=== PATIENT | female | born 1990 | race Caucasian/White ===

== ENCOUNTER 2016-06-08 14:05 | Emergency (ER) | payer BC ==
[~2016-06-08] VITALS: Ht 157.5 cm; Wt 45.0 kg
[2016-06-08 14:06] VITALS: BP 145/82; PULSE 106; RESP 14; TEMP 98.5; O2SAT 98
[2016-06-08 15:15] LABS: BACTERIA, URINE RARE /hpf; BLOOD, URINE NEG (NEG); COMMENT (UR) CULT NOT INDICATED; CULTURE IF INDICATED CULT NOT INDICATED; GLUCOSE,URINE NEG (NEG); KETONE, URINE NEG (NEG); MUCUS URINE FEW /lpf (OCC); NITRITE,URINE NEG (NEG); PH, URINE 7.5 (5.0-8.5); SQUAMOUS EPITHELIAL CELL URINE 1 /hpf (0-5); URINE COLOR COLORLESS (YELLW/STRAW)
[2016-06-08] MEDS ORDERED: NORE1TAB PO (17:10)
[2016-06-08] MEDS ORDERED: IBUP800T23 PO (17:14)
[2016-06-08] MEDS ORDERED: CEPH-460 PO (17:14)
[2016-06-08] MEDS ORDERED: PHEN0.4T PO (17:14)
--- NOTE | 2016-06-08 17:14 | PD ---
HPI Chief Complaint: Complaint Time Seen by Provider: 17:08 Travel History International Travel<30 days: No Contact w/Intl Traveler<30days: No Traveled to known affect area: No History of Present Illness HPI 26-year-old female presents to the emergency Department with complaint of painful urination since November. Reports painful urination has been present much constant since. She has been tested for urinary tract infections many times and told she didn't have one. She is been tested for STDs multiple times and recently was tested again. She has followed up with her primary care and gynecology. She has taken antibiotics in the past with some resolution of the pain during the antibiotics but then recurrence immediately. She has tried cranberry pills with no relief of symptoms. Reports urinary frequency and urgency. Denies hematuria. Reports bladder spasms. Denies abdominal pain, nausea, vomiting. Denies fever, chills. Denies vaginal discharge, odor, itch, lesions. Denies risk of . No known relieving factors. Allergies to sulfa. Denies significant past medical history. Has an appointment on with her primary care provider, Dr. Pastor. No other modifying factors or associated signs and symptoms. PFSH Past Medical History ?: Not LMP: 05/18/16 Social History Tobacco Use: No Allergies-Medications (Allergen,Severity, Reaction): Coded Allergies: Sulfa (Verified Allergy, Unknown, RASH, 06/08/16) Reported Meds & Prescriptions Reported Meds & Active Scripts Active Ibuprofen 800 Mg Tab 800 Mg PO Q6HR PRN Pyridium (Phenazopyridine HCl) 100 Mg Tab 100 Mg PO Q8H PRN Keflex (Cephalexin) 500 Mg Cap 500 Mg PO Q12H 7 Days Reported Microgestin 24 Fe 05/13 (Norethindrone-Ethinyl Estradiol-Fe) 1-20 Mg-Mcg Tab 1 Tab PO DAILY Review of Systems Except as stated in HPI: all other systems reviewed are Neg Physical Exam Narrative GENERAL: Well-nourished, well-developed female patient, in no acute distress SKIN: Warm and dry. No rash. HEAD: Atraumatic. Normocephalic. EYES: Pupils equal and round. No scleral icterus. No injection or drainage. ENT: Mucosa pink and moist. NECK: Trachea midline. CARDIOVASCULAR: Regular rate and rhythm. No murmur appreciated. RESPIRATORY: No accessory muscle use. Clear to auscultation. Breath sounds equal bilaterally. GASTROINTESTINAL: Abdomen soft, non-tender, nondistended. Hepatic and splenic margins not palpable. Bowel sounds are active 4 quadrants. Bladder nontender and nondistended. MUSCULOSKELETAL: No obvious deformities. No clubbing. No cyanosis. No edema. BACK: No CVA tenderness NEUROLOGICAL: Awake and alert. Oriented 3. No obvious cranial nerve deficits. Motor grossly within normal limits. Normal speech. Moves all extremities. 5/5 strength to all extremities. PSYCHIATRIC: Appropriate mood and affect; insight and judgment normal. Data Data Last Documented VS Vital Signs Date Time Temp Pulse Resp B/P Pulse Ox O2 Delivery O2 Flow Rate FiO2 06/08/16 14:06 98.5 106 14 145/82 98 Room Air Orders Urinalysis - C+S If Indicated (06/08/16 14:21) Ed Urine Pregnancytest Poc (06/08/16 14:21) Labs Laboratory Tests Test 06/08/16 14:30 Urine Color COLORLESS Urine Turbidity CLEAR Urine pH 7.5 Urine Specific [place] 1.003 Urine Protein NEG mg/dL Urine Glucose (UA) NEG mg/dL Urine Ketones NEG mg/dL Urine Occult Blood NEG Urine Nitrite NEG Urine Bilirubin NEG Urine Urobilinogen LESS THAN 2.0 MG/DL Urine Leukocyte Esterase SMALL Urine RBC LESS THAN 1 /hpf Urine WBC 5 /hpf Urine Squamous Epithelial 1 /hpf Cells Urine Bacteria RARE /hpf Urine Mucus FEW /lpf Microscopic Urinalysis Comment CULT NOT INDICATED MDM Medical Decision Making Medical Screen Exam Complete: Yes Emergency Medical Condition: Yes Medical Record Reviewed: Yes Differential Diagnosis Interstitial cystitis, urinary tract infection, pyelonephritis Narrative Course 26-year-old female with dysuria since November. She has had multiple follow-ups with her [facility] and gynecology. She has been tested for STDs and UTIs with no resolution of symptoms. She's been treated with antibiotics with minimal resolution of symptoms. Patient denies vaginal symptoms. She has a follow-up appointment with her primary care provider on . Urinalysis in the ER is with no signs of infections. Suspecting interstitial cystitis. I will provide the patient with a prescription for Keflex and Pyridium for home. Instructed patient to follow up with urology. Patient verbalizes understanding and agreement with treatment plan. Keflex, Pyridium, ibuprofen prescribed for home. Patient is medically cleared and stable for discharge. Discussed reasons to return to the emergency department. Instructed patient to follow up with primary care provider. Patient agrees with treatment plan. The patients vital signs are stable and the patient is stable for outpatient follow-up and treatment. Patient discharged home, stable and in no acute distress. Diagnosis Primary Impression: Cystitis Referrals: Primary Care Physician Urologist Patient Instructions: General Instructions, Interstitial Cystitis (ED), Urinary Tract Infection in Women (ED) Departure Forms: Tests/Procedures, Work Release Enter return to work date: Jun 09, 2016 Additional Instructions: Take antibiotics as prescribed and complete full course Take Pyridium for bladder spasms: Pyridium will turn your urine bright orange Drink plenty of fluids Maintain good personal hygiene Follow-up with primary care provider Follow-up with urology Return to the emergency department immediately with worsening of symptoms Med/Other Pt SpecificInfo: Prescription(s) given Scripts Ibuprofen 800 Mg [id number] Mg PO Q6HR PRN (PAIN) #30 TAB Ref 0 Prov:Maki Zapien 06/08/16 Phenazopyridine (Pyridium)100 Mg [id number] Mg PO Q8H PRN (DYSURIA) #20 TAB Ref 0 Prov:Maki Zapien 06/08/16 Cephalexin (Keflex)500 Mg [id number] Mg PO Q12H 7 Days Ref 0 Prov:Maki Zapien 06/08/16 Disposition: 01 DISCHARGE HOME Condition: Stable Maki Zapien Jun 08, 2016 17:14
== END 2016-06-08 18:03 | disposition home or self-care (01) ==
LOC: NEPB 14:05
DX: N30.90 Cystitis, unspecified without hematuria (principal); N32.89 Other specified disorders of bladder
CPT/HCPCS: 81001; 84703; 99283

== ENCOUNTER 2016-11-29 21:51 | Emergency (ER) | payer BC ==
[~2016-11-29] VITALS: Ht 165.1 cm; Wt 45.0 kg
[~2016-11-29 21:51] MED LIST: CEPH-460 PO; IBUP800T23 PO; NORE1TAB PO; PHEN0.4T PO
[2016-11-29 21:54] VITALS: BP 154/86; PULSE 88; RESP 18; TEMP 97.5; O2SAT 96
[2016-11-29] MEDS ORDERED: CIPR-9 PO (22:34)
--- NOTE | 2016-11-29 22:53 | PD ---
HPI Chief Complaint: Psychiatric Symptoms Time Seen by Provider: 22:39 Travel History International Travel<30 days: No Contact w/Intl Traveler<30days: No Traveled to known affect area: No History of Present Illness HPI The patient is a 26 year old female who presents to the [facility] emergency department with a history of right lower quadrant abdominal pain that she reports began 1 hour prior to arrival. The patient reports that it is sharp in character. She reports that it was initially constant, however now it seems to be coming and going. She denies having any associated nausea, vomiting , or diarrhea. She reports that she does intermittently feel lightheaded with it. She denies having any problems with constipation. She last moved her bowels earlier today. She denies having any blood in her stool. She does recently report having some dysuria with urinary urgency that began yesterday. She did see her primary care physician regarding this and had a urinalysis done that revealed a urinary tract infection. She reports that she was given a prescription for ciprofloxacin which she has started. She has taken this medication in the past without difficulty. On review of systems, the patient denies any recent fevers, cough, congestion, neck pain, chest pain, shortness of breath, vaginal discharge or unusual vaginal bleeding or neurologic symptoms. She reports that her last menstrual cycle was normal for her. She denies any concerns about sexually transmitted infections. LMP: Last Monday PFSH Past Medical History Narrative Medical The patient's past medical history is reportedly significant for recurrent urinary tract infections. Diminished Hearing: No Genitourinary: Yes (chronic bladder infection) ?: Unknown : 0 Para: 0 Past Surgical History Narrative Surgical The patient's past surgical history is reportedly none. Surgical History: No Previous Surgery Social History Alcohol Use: Yes (RARELY) Tobacco Use: No Substance Use: No Allergies-Medications (Allergen,Severity, Reaction): Coded Allergies: Sulfa (Verified Allergy, Unknown, RASH, 11/29/16) Reported Meds & Prescriptions Reported Meds & Active Scripts Active Pyridium (Phenazopyridine HCl) 100 Mg Tab 100 Mg PO Q8H PRN Reported Cipro (Ciprofloxacin HCl) 500 Mg Tab 500 Mg PO BID Review of Systems Except as stated in HPI: all other systems reviewed are Neg General / Constitutional: No: Fever Eyes: No: Visual changes HENT: No: Headaches Cardiovascular: No: Chest Pain or Discomfort Respiratory: No: Shortness of Breath Gastrointestinal: Positive: Abdominal Pain, No: Nausea, Vomiting, Diarrhea, Hematemesis, Hematochezia, Changes in Bowel Habits, Indigestion Genitourinary: Positive: Urgency, Dysuria Musculoskeletal: No: Pain Skin: No Rash Neurologic: No: Weakness Psychiatric: No: Depression Endocrine: No: Polydipsia Hematologic/Lymphatic: No: Easy Bruising Physical Exam Narrative General: The patient is well-developed well-nourished female in no acute distress. Head and Neck exam: Head is normocephalic atraumatic. Eyes: EOMI, pupils are equal round and reactive to light. Nose: Midline septum with pink mucous membranes Mouth: Dentition unremarkable. Moist mucus membranes. Posterior oropharynx is not erythematous. No tonsillar hypertrophy. Uvula midline. Airway patent. Neck: No palpable lymphadenopathy. No nuchal rigidity. No thyromegaly. Cardiovascular: Regular rate and rhythm without murmurs, gallops, or rubs. Lungs: Clear to auscultation bilaterally. No wheezes, rhonchi, or rales. Abdomen: Soft, with tenderness on palpation of the right lower quadrant of the abdomen. The patient has tenderness on palpation over McBurney's point. No other tenderness on palpation of the other quadrants of the abdomen. Negative psoas sign. Negative Rovsing sign. Normal bowel sounds are audible. No guarding, rebound, or rigidity. Negative [place] sign. Extremities: No clubbing, cyanosis, or edema. 2+ pulses in all 4 extremities. No calf tenderness on palpation. Back: No costovertebral angle tenderness to palpation. Neurologic Exam: Grossly nonfocal. Skin Exam: No rash noted. Intact skin that is warm and dry. Gynecologic exam: The patient was placed in the dorsal lithotomy position. Her external genitalia were examined. She had no evidence of rash or lesions. The speculum was placed into her vagina and the cervix was identified. She had a physiologic appearing white discharge. No cervical friability. On Bimanual exam: she has no cervical motion tenderness. No adnexal tenderness or prominence noted on palpation. No uterine tenderness or enlargement noted on palpation. Data Data Last Documented VS Vital Signs Date Time Temp Pulse Resp B/P Pulse Ox O2 Delivery O2 Flow Rate FiO2 11/29/16 21:54 97.5 88 18 154/86 96 Orders Complete Blood Count With Diff (11/29/16 22:40) Comprehensive Metabolic Panel (11/29/16 22:40) Thyroid Stimulating Hormone (11/29/16 22:40) Urinalysis - C+S If Indicated (11/29/16 22:40) Ed Urine Pregnancytest Poc (11/29/16 22:40) Alcohol (Ethanol) (11/29/16 22:40) C-Reactive Protein (Crp) (11/29/16 23:02) Lipase (11/29/16 23:02) Iv Access Insert/Monitor (11/29/16 23:02) Ecg Monitoring (11/29/16 23:02) Oximetry (11/29/16 23:02) Gc And Chlamydia Pcr (11/29/16 23:05) Wet Prep Profile (11/29/16 23:05) Urine Culture (11/29/16 22:45) Ketorolac Inj (Toradol Inj) (11/29/16 23:45) Sodium Chlor 0.9% 1000 Ml Inj (Ns 1000 M (11/29/16 23:45) Ct Abd/Pel W Iv Contrast(Rout) (11/30/16 23:02) Iohexol 350 Inj (Omnipaque 350 Inj) (11/30/16 00:41) Labs Laboratory Tests Test 11/29/16 11/29/16 11/29/16 22:45 22:55 23:50 Urine Color DARK-BROWN Urine Turbidity CLEAR Urine pH 6.5 Urine Specific [place] 1.015 Urine Protein NEG mg/dL Urine Glucose (UA) NEG mg/dL Urine Ketones NEG mg/dL Urine Occult Blood NEG Urine Nitrite POS Urine Bilirubin NEG Urine Urobilinogen 2.0 MG/DL Urine Leukocyte Esterase NEG Urine RBC 1 /hpf Urine WBC LESS THAN 1 /hpf Urine Squamous Epithelial <1 /hpf Cells Microscopic Urinalysis Comment CULTURE INDICATED White Blood Count 8.6 TH/MM3 Red Blood Count 4.64 MIL/MM3 Hemoglobin 15.1 GM/DL Hematocrit 42.8 % Mean Corpuscular Volume 92.2 FL Mean Corpuscular Hemoglobin 32.5 PG Mean Corpuscular Hemoglobin 35.2 % Concent Red Cell Distribution Width 12.3 % Platelet Count 320 TH/MM3 Mean Platelet Volume 6.9 FL Neutrophils (%) (Auto) 66.0 % Lymphocytes (%) (Auto) 25.7 % Monocytes (%) (Auto) 6.1 % Eosinophils (%) (Auto) 1.7 % Basophils (%) (Auto) 0.5 % Neutrophils # (Auto) 5.7 TH/MM3 Lymphocytes # (Auto) 2.2 TH/MM3 Monocytes # (Auto) 0.5 TH/MM3 Eosinophils # (Auto) 0.1 TH/MM3 Basophils # (Auto) 0.0 TH/MM3 CBC Comment DIFF FINAL Differential Comment Sodium Level 136 MEQ/L Potassium Level 3.8 MEQ/L Chloride Level 102 MEQ/L Carbon Dioxide Level 28.1 MEQ/L Anion Gap 6 MEQ/L Blood Urea Nitrogen 13 MG/DL Creatinine 0.70 MG/DL Estimat Glomerular Filtration 103 ML/MIN Rate Random Glucose 97 MG/DL Calcium Level 8.3 MG/DL Total Bilirubin 0.2 MG/DL Aspartate Amino Transf 21 U/L (AST/SGOT) Alanine Aminotransferase 20 U/L (ALT/SGPT) Alkaline Phosphatase 63 U/L C-Reactive Protein LESS THAN 0.29 MG/DL Total Protein 7.5 GM/DL Albumin 3.8 GM/DL Lipase 133 U/L Thyroid Stimulating Hormone 1.130 uIU/ML 3rd Gen Ethyl Alcohol Level LESS THAN 3 MG/DL Clue Cells (Wet Prep) PRESENT Vaginal Trichomonas (Wet Prep) NONE SEEN Vaginal Yeast (Wet Prep) NONE SEEN MDM Medical Decision Making Medical Screen Exam Complete: Yes Emergency Medical Condition: Yes Medical Record Reviewed: Yes Differential Diagnosis Appendicitis, versus ovarian cyst, versus PID, versus ectopic , versus kidney stone Narrative Course During the course of the patients emergency department visit, the patients history, examination, and differential diagnosis were reviewed with the patient. The patient had IV access obtained and blood work sent for analysis. The patient states on a cardiac surgeon with oximetry and blood pressure monitoring. Bedside test was negative. The patient was initially provided the patient was given normal saline 1 L IV fluid bolus. Toradol 15 mg IV. The patients laboratory studies were reviewed and remarkable for a white count of 8.6, hemoglobin 15.1, platelets 320 with a normal differential, CMP is remarkable for calcium of 8.3, lipase is 133, TSH 1.13, C-reactive protein less than 0.29, urinalysis shows dark Brown urine, positive nitrite, otherwise microscopy is unremarkable. The patient is currently on antibiotic for a UTI diagnosed yesterday. Wet prep is positive for clue cells. Radiology studies were reviewed and remarkable for a CT scan of the abdomen and pelvis showed no acute inflammatory changes in the pelvis. The patient was noted to have a simple cyst of the left lower pole of the kidney, tiny low density liver lesion right lobe. No further workup is generally needed for incidentally detected benign-appearing liver lesions according to the reading radiologist. A tiny calcified appendicolith is suspected without adjacent inflammatory changes are otherwise abnormal appearance of the appendix. The patient was reexamined and the patient's results were discussed with her. I did offer admission for observation and serial abdominal examinations, however the patient reported that she would like to be discharged home and follow-up for reexamination tomorrow. The patient was instructed that in the meantime if she has a recurrence of the abdominal pain, fever, or vomiting, she should report back immediately to the emergency department. The patient was agreeable with this plan. The patient is resting comfortably and feels better, is alert and in no distress. The patients results and examination findings were discussed with the patient. The repeat examination is unremarkable and benign. The history, exam, diagnostic testing, and current condition do not suggest any significant pathology to warrant further testing, continued ED treatment, admission, or surgical evaluation at this point. The vital signs have been stable. The patient does not have uncontrollable pain, intractable vomiting, or other significant symptoms. The patient's condition is stable and appropriate for discharge. The patient will pursue further outpatient evaluation with a primary care physician or other designated or consulting physician as indicated in the discharge instructions. The patient expressed understanding and was agreeable with this plan. Diagnosis Primary Impression: Abdominal pain Qualified Code: R10.31 - Right lower quadrant abdominal pain Additional Impression: Bacterial vaginosis Referrals: Primary Care Physician 1 day Patient Instructions: Abdominal Pain (ED), Bacterial Vaginosis (ED), General Instructions, Urinary Tract Infection in Women (ED) Med/Other Pt SpecificInfo: Prescription(s) given Scripts Metronidazole (Flagyl)500 Mg [id number] Mg PO BID 7 Days Ref 0 Prov:Diana Jacobsen MD 11/30/16 Disposition: 01 DISCHARGE HOME Condition: Stable Diana Jacobsen MD Nov 29, 2016 22:52
[2016-11-29 23:11] LABS: AUTOMATED NEUTROPHIL # 5.7 TH/MM3 (1.8-7.7); BASOPHIL % 0.5 % (0.0-2.0); EOSINOPHIL # 0.1 TH/MM3 (0-0.4); EOSINOPHIL % 1.7 % (0.0-4.0); HEMATOCRIT 42.8 % (35.0-46.0); HEMO FLAGS DIFF FINAL; LYMPH % 25.7 % (9.0-44.0); LYMPHOCYTE # 2.2 TH/MM3 (1.0-4.8); MEAN CELL VOLUME 92.2 FL (80.0-100.0); MEAN CORPUSCULAR HEMOGLOBIN 32.5 PG (27.0-34.0); MEAN CORPUSCULAR HGB CONC 35.2 % (32.0-36.0); MONO % 6.1 % (0.0-8.0); PLATELET COUNT 320 TH/MM3 (150-450); RED BLOOD COUNT 4.64 MIL/MM3 (4.00-5.30); RED CELL DISTRIBUTION WIDTH 12.3 % (11.6-17.2); WHITE BLOOD COUNT 8.6 TH/MM3 (4.0-11.0)
[2016-11-29 23:16] LABS: BLOOD, URINE NEG (NEG); COMMENT (UR) CULTURE INDICATED; CULTURE IF INDICATED CULTURE INDICATED; GLUCOSE,URINE NEG (NEG); KETONE, URINE NEG (NEG); NITRITE,URINE POS (NEG); PH, URINE 6.5 (5.0-8.5); SQUAMOUS EPITHELIAL CELL URINE <1 /hpf (0-5); URINE COLOR DARK-BROWN (YELLW/STRAW)
[2016-11-29 23:20] LABS: ANION GAP 6 MEQ/L (5-15); AST (GOT) 21 U/L (15-37); BICARBONATE 28.1 MEQ/L (21.0-32.0); BLOOD UREA NITROGEN 13 MG/DL (7-18); CHLORIDE 102 MEQ/L (98-107); GLOMERULAR FILTRATION RATE 103 ML/MIN (>89); POTASSIUM 3.8 MEQ/L (3.5-5.1); SODIUM (NA) 136 MEQ/L (136-145)
[2016-11-29 23:31] LABS: ALKALINE PHOSPHATASE 63 U/L (45-117); ALT (GPT) 20 U/L (10-53); TOTAL BILIRUBIN ADULT 0.2 MG/DL (0.2-1.0)
[2016-11-29 23:36] LABS: ALCOHOL LESS THAN 3 MG/DL (0-5)
[2016-11-29] MEDS ORDERED: KETOROLAC TROMETHAMINE 30 MG/ML (IVP) VIAL IV PUSH ONE (23:45)
[2016-11-29] MEDS ORDERED: SODIUM CHLOR 0.9% 1000 ML INJ 1,000 ML IV ONE (23:45)
[2016-11-30] MEDS ORDERED: IOHEXOL 350 MG/ML 10 ML VIAL (for RAD DIAG) IV ONE (00:41)
--- NOTE | 2016-11-30 00:54 | RADRPT ---
EXAM DATE/TIME: 11/30/2016 00:36 [place] COMPARISON: No previous studies available for comparison. INDICATIONS : Right lower quadrant pain. IV CONTRAST: 75 cc Omnipaque 350 (iohexol) IV ORAL CONTRAST: No oral contrast ingested. RADIATION DOSE: 4.50 CTDIvol (mGy) MEDICAL HISTORY : None SURGICAL HISTORY : None. ENCOUNTER: Initial ACUITY: 1 day PAIN SCALE: 8/10 LOCATION: Right lower quadrant TECHNIQUE: Volumetric scanning of the abdomen and pelvis was performed. Using automated exposure control and ad justment of the mA and/or kV according to patient size, radiation dose was kept as low as reasonably achievable to obtain optimal diagnostic quality images. DICOM format image data is available electro nically for review and comparison. FINDINGS: There is a 4.6 mm low-density lesion right lobe of the liver. Gallbladder, right kidney, spleen, panc reas, adrenal glands, urinary bladder, uterus and ovaries are unremarkable in CT appearance. Stomach, small bowel, large bowel unremarkable. The appendix is normal in caliber. A 1.9 mm appendicolith is present near the tip of the appendix. There are no inflammatory changes seen in the right lower quadr ant. There is no free fluid. 9 mm simple cyst left lower pole kidney. CONCLUSION: 1. No inflammatory changes in the abdomen or pelvis. 2. Simple cyst left lower pole kidney. 3. 4. Tiny low-density liver lesion right lobe. No further work-up is generally needed for incidentally detected benign-appearing liver lesions <0.5 cm in low risk individuals. This patient is classified as low risk based on the reported history, including age <40 and absence of hepatic risk factors/sym ptoms. These general recommendations do not apply to all patients, so that correlation with clinical information is required. Reference: 5. Garyland LL, Dilcia SG, Michele RM et al; Managing Incidental Findings on Abdominal CT: [place]rett hutchison of the ACR Incidental Findings Committee. J Am Magali Radiol 2010;7:[id number]. 6. Tiny calcified appendicolith suspected without adjacent inflammatory changes or otherwise abnormal appearance of the appendix. Curtis Russo MD on November 30, 2016 at 0:48 Board Certified Radiologist. This report was verified electronically.
[2016-11-30] MEDS ORDERED: METR-1 PO (01:14)
[2016-11-30 01:48] LABS: CHLAMYDIA PCR NOT DETECTED (NOT DETECT); NEISSERIA PCR NOT DETECTED (NOT DETECT)
== END 2016-11-30 01:25 | disposition home or self-care (01) ==
LOC: NEPE 21:51
DX: N76.0 Acute vaginitis (principal); Z87.440 Personal history of urinary (tract) infections
CPT/HCPCS: 74177; 80053; 80307; 81001; 83690; 84443; 84703; 85025; 86140; 87086; 87210; 87491; 87591; 96361; 96374; 99285; J1885; J7030; Q9967